=== PATIENT | female | born 1955 | race Caucasian/White ===

== ENCOUNTER → 2018-10-29 | Outpatient (CLI) | payer BC ==
[~2018-10-29] MED LIST: AZEL6DRO2 OP; BENZ200C47 PO; CYCL-331 PO; IBUP800T19 PO; IPRA4AER IH; MECL25TA3 PO; PRED1TAB PO; RAMI10CA53 PO
--- NOTE | 2018-10-29 10:09 | RAD ---
EXAM: Abdomen sonogram. HISTORY: Right upper quadrant pain. TECHNIQUE: Sonographic imaging of the abdomen was performed. COMPARISON: None. FINDINGS: The liver is upper normal in size. No focal hepatic lesion is seen. There is hepatic steatosis. There is cholelithiasis. The common bile duct is normal in caliber. The spleen is normal in size. The right kidney measures 7.3 cm [id number]. There is right renal cortical thinning. Left kidney measures 11.0 cm [id number]. The pancreas is obscured due to bowel gas. The aorta and inferior vena cava are partially obscured due to bowel gas. IMPRESSION: 1. Hepatic steatosis and upper normal liver size. 2. Cholelithiasis. 3. Right renal atrophy and renal cortical thinning. Electronically signed by: Mona Stubbs MD (10/29/2018 10:06 AM) [id number]
== END | disposition home or self-care (01) ==
LOC: US 08:55
PROVIDERS: ATTEND Physician Assistant
DX: K76.0 Fatty (change of) liver, not elsewhere classified (principal); K80.20 Calculus of gallbladder without cholecystitis without obstruction; N26.1 Atrophy of kidney (terminal)
CPT/HCPCS: 76700

== ENCOUNTER 2018-12-12 14:03 | Emergency (ER) | payer BC ==
[~2018-12-12] VITALS: Ht 162.6 cm; Wt 70.3 kg
[2018-12-12 14:24] LABS: BASO % 0 % (0-3); EOS # 0.1 x10^3/uL (0.0-0.7); EOS % 1 % (0-3); HEMATOCRIT 40.8 % (36.0-47.0); HEMOGLOBIN 13.7 g/dL (12.0-15.5); LYMPH # 3.2 x10^3/uL (1.0-4.8); LYMPH % 27 % (24-48); MEAN CORPUSCULAR HEMOGLOBIN 30 pg (25-35); MEAN CORPUSCULAR HGB CONC 34 g/dL (31-37); MEAN CORPUSCULAR VOLUME 88 fL (79-100); MONO # 0.8 x10^3/uL (0.0-1.1); MONO % 7 % (0-9); NEUT # 7.8 x10^3uL (1.8-7.7); NEUT % 65 % (31-73); PLATELET COUNT 219 x10^3/uL (140-400); RED BLOOD COUNT 4.63 x10^6/uL (3.50-5.40); RED CELL DISTRIBUTION WIDTH 13.2 % (11.5-14.5); WHITE BLOOD COUNT 11.9 x10^3/uL (4.0-11.0)
--- NOTE | 2018-12-12 14:37 | RAD ---
CHEST AP ONLY History: Chest heaviness starting this morning Comparison: 06/15/2013 Findings: Single view of the chest is submitted. There is no infiltrate, pneumothorax, or effusion. The pericardial cardiac silhouette is within normal limits in size. There is atherosclerotic calcification near aortic arch. Impression: 1. There is no evidence of acute cardiopulmonary disease. Electronically signed by: Tor Sequeira MD (12/12/2018 2:33 PM) [facility]
[2018-12-12 14:39] LABS: ALBUMIN 3.7 g/dL (3.4-5.0); CALCIUM 9.4 mg/dL (8.5-10.1); CREATININE 1.2 mg/dL (0.6-1.0); GFR 45.5; TOTAL BILIRUBIN 0.4 mg/dL (0.2-1.0); TOTAL PROTEIN 7.4 g/dL (6.4-8.2)
--- NOTE | 2018-12-12 14:40 | PHYS DOC ---
Adult General Chief Complaint Chief Complaint: RAPID HEART RATE HPI HPI 63-year-old female presents with palpitations. The patient states that she was at home eating when she began to feel like her heart was going faster and faster. She then became somewhat short of breath. The patient took an albuterol MDI and albuterol nebulizer right before she came to the emergency room. She thinks that this palpitation episode lasted about 15 minutes. It seems to be gone at this time. Patient has had intermittent palpitations in the past but has never had an official diagnosis. At this time she denies chest pain, shortness of breath. She did not have any diaphoresis. She denies fever or chills. Review of Systems Review of Systems Constitutional: Denies fever or chills [] Eyes: Denies change in visual acuity, redness, or eye pain [] HENT: Denies nasal congestion or sore throat [] Respiratory: Denies cough or shortness of breath [] Cardiovascular: No additional information not addressed in HPI [] GI: Denies abdominal pain, nausea, vomiting, bloody stools or diarrhea [] : Denies dysuria or hematuria [] Musculoskeletal: Denies back pain or joint pain [] Integument: Denies rash or skin lesions [] Neurologic: Denies headache, focal weakness or sensory changes [] Endocrine: Denies polyuria or polydipsia [] All other systems were reviewed and found to be within normal limits, except as documented in this note. Allergies Allergies Allergies Coded Allergies Type Severity Reaction Last Updated Verified meperidine Allergy Intermediate nausea 01/13/14 Yes naproxen Allergy Intermediate "Shakes" and nausea 01/13/14 Yes tramadol Allergy Intermediate "Shakes" 01/13/14 Yes Physical Exam Physical Exam Constitutional: Well developed, well nourished, no acute distress, non-toxic appearance. [] HENT: Normocephalic, atraumatic, bilateral external ears normal, oropharynx moist, no oral exudates, nose normal. [] Eyes: PERRLA, EOMI, conjunctiva normal, no discharge. [] Neck: Normal range of motion, no tenderness, supple, no stridor. [] Cardiovascular:Heart rate 115, regular rhythm, no murmur [] Lungs & Thorax: Bilateral breath sounds clear to auscultation [] Abdomen: Bowel sounds normal, soft, no tenderness, no masses, no pulsatile masses. [] Skin: Warm, dry, no erythema, no rash. [] Back: No tenderness, no CVA tenderness. [] Extremities: No tenderness, no cyanosis, no clubbing, ROM intact, no edema. [] Neurologic: Alert and oriented X 3, normal motor function, normal sensory function, no focal deficits noted. [] Psychologic: Affect normal, judgement normal, mood normal. [] Current Patient Data Lab Results Laboratory Tests Test 12/12/18 14:14 White Blood Count 11.9 x10^3/uL (4.0-11.0) H Red Blood Count 4.63 x10^6/uL (3.50-5.40) Hemoglobin 13.7 g/dL (12.0-15.5) Hematocrit 40.8 % (36.0-47.0) Mean Corpuscular Volume 88 fL (79-100) Mean Corpuscular Hemoglobin 30 pg (25-35) Mean Corpuscular Hemoglobin Concent 34 g/dL (31-37) Red Cell Distribution Width 13.2 % (11.5-14.5) Platelet Count 219 x10^3/uL (140-400) Neutrophils (%) (Auto) 65 % (31-73) Lymphocytes (%) (Auto) 27 % (24-48) Monocytes (%) (Auto) 7 % (0-9) Eosinophils (%) (Auto) 1 % (0-3) Basophils (%) (Auto) 0 % (0-3) Neutrophils # (Auto) 7.8 x10^3uL (1.8-7.7) H Lymphocytes # (Auto) 3.2 x10^3/uL (1.0-4.8) Monocytes # (Auto) 0.8 x10^3/uL (0.0-1.1) Eosinophils # (Auto) 0.1 x10^3/uL (0.0-0.7) Basophils # (Auto) 0.0 x10^3/uL (0.0-0.2) EKG EKG Sinus tachycardia, rate 116, normal axis, no ST elevations or depressions.[] Radiology/Procedures Radiology/Procedures [] Course & Med Decision Making Course & Med Decision Making Pertinent Labs and Imaging studies reviewed. (See chart for details) Asians labs are significant for potassium 2.9. We have given her 40 mEq by mouth. She also has an elevated blood sugar. The patient is a diabetic and on medication. Her EKG is unremarkable. Her troponin is negative. Her chest x-ray is unremarkable. She is feeling better at this time. Her heart rate has slowed to the normal range. I have advised that she take some extra potassium for at least a week and then discuss with her primary care physician. The patient has been using her albuterol inhaler much more frequently this week. This could be a partial cause for her hypokalemia. She is stable for discharge at this time. [] Dragon Disclaimer Dragon Disclaimer This electronic medical record was generated, in whole or in part, using a voice recognition dictation system. Departure Departure: Impression: Primary Impression: Palpitations Additional Impressions: Hypokalemia Diabetes type 2, uncontrolled Disposition: 01 HOME, SELF-CARE Condition: STABLE Referrals: TOYA SEVILLA MD (PCP) Patient Instructions: Hypokalemia-Brief, Palpitations, [id number] Problem Qualifiers Additional Impressions: Diabetes type 2, uncontrolled Glycemic state: with hyperglycemia Qualified Codes: E11.65 - Type 2 diabetes mellitus with hyperglycemia MARIA VICTORIA FERNANDEZ DO Dec 12, 2018 14:40
[2018-12-12 14:43] LABS: POTASSIUM 2.9 mmol/L (3.5-5.1)
[2018-12-12] MEDS ORDERED: POTASSIUM CHLORIDE 20 MEQ TABLET.ER. PO ONE (15:15)
[2018-12-12 15:53] LABS: BILIRUBIN,URINE NEG (NEG); CLARITY,URINE HAZY; COLOR,URINE YELLOW; GLUCOSE,URINE 500 mg/dL (NEG)
[2018-12-12 15:54] LABS: BACTERIA,URINE FEW /HPF (0-FEW); NITRITE,URINE NEG (NEG); RBC,URINE 0 /HPF (0-2); SQUAMOUS EPITHELIAL CELL,UR OCC /LPF; UROBILINOGEN,URINE 0.2 mg/dL (0.2 mg/dL)
[2018-12-12 16:07] VITALS: BP 116/64
--- NOTE | 2018-12-12 21:50 | EKG ---
[address] [address] Test Date: 2018-12-12 Test Time: 14:14:05 Pat Name: JG ANN Department: Room: Gender: F Ad Operations Specialist: : [id number] Requested By: MARIA VICTORIA FERNANDEZ Order Number: [id number] Reading MD: Fletcher Navarro MD Measurements Intervals [place] Rate: 116 P: -28 TN: 174 QRS: 5 QRSD: 78 T: 62 QT: 326 QTc: 459 Interpretive Statements SINUS TACHYCARDIA Electronically Signed On 12-14-2018 14:34:42 CDT by Fletcher Navarro MD
== END 2018-12-12 16:23 | disposition home or self-care (01) ==
LOC: ER 14:03
DX: R00.2 Palpitations (principal); E11.65 Type 2 diabetes mellitus with hyperglycemia; E87.6 Hypokalemia; Z88.8 Allergy status to other drugs, medicaments and biological substances; Z88.6 Allergy status to analgesic agent
CPT/HCPCS: 36415; 71045; 80053; 81001; 84484; 85025; 93005; 99284

== ENCOUNTER 2021-03-29 07:58 | Emergency (ER) | payer MEDICARE ==
[~2021-03-29] VITALS: Ht 162.6 cm; Wt 61.0 kg
[~2021-03-29 07:58] MED LIST changes: +MECL-75 PO; -MECL25TA3 PO
--- NOTE | 2021-03-29 08:32 | PHYS DOC ---
Past History Past Medical History: Asthma, Depression, High Cholesterol, Hypertension Past Surgical History: Cholecystectomy, Hysterectomy, Other Alcohol Use: Rarely Drug Use: None General Adult EDM: Chief Complaint: Palpitations HPI: HPI: 66-year-old female presents with palpitations. The patient started having palpitations around midnight last night. Her primary care physician told her that if she had an episode like this that she should come to the emergency room. She did not come in right away because she did not want to wake up the rest of her household. Patient does have an appointment with a county assessor tomorrow for further work-up. She had a "concerning cardioscan" recently. She denies shortness of breath or diaphoresis. She has no other complaints at this time. Review of Systems: Review of Systems: Constitutional: Denies fever or chills Eyes: Denies change in visual acuity HENT: Denies nasal congestion or sore throat Respiratory: Denies cough or shortness of breath Cardiovascular: Palpitations. Denies chest pain or edema GI: Denies abdominal pain, nausea, vomiting, bloody stools or diarrhea : Denies dysuria Musculoskeletal: Denies back pain or joint pain Integument: Denies rash Neurologic: Denies headache, focal weakness or sensory changes Endocrine: Denies polyuria or polydipsia Lymphatic: Denies swollen glands Psychiatric: Denies depression or anxiety Allergies: Allergies: Allergies Coded Allergies Type Severity Reaction Last Updated Verified meperidine Allergy Intermediate nausea 03/29/21 Yes naproxen Allergy Intermediate "Shakes" and nausea 03/29/21 Yes tramadol Allergy Intermediate "Shakes" 03/29/21 Yes niacin Allergy Unknown 03/29/21 Yes Physical Exam: PE: Constitutional: Well developed, well nourished, no acute distress, non-toxic appearance. [] HENT: Normocephalic, atraumatic, bilateral external ears normal, oropharynx moist, no oral exudates, nose normal. [] Eyes: PERRLA, EOMI, conjunctiva normal, no discharge. [] Neck: Normal range of motion, no tenderness, supple, no stridor. [] Cardiovascular: Heart rate 74,regular rhythm, no murmur [] Lungs & Thorax: Bilateral breath sounds clear to auscultation [] Abdomen: Bowel sounds normal, soft, no tenderness, no masses, no pulsatile masses. [] Skin: Warm, dry, no erythema, no rash. [] Back: No tenderness, no CVA tenderness. [] Extremities: No tenderness, no cyanosis, no clubbing, ROM intact, no edema. [] Neurologic: Alert and oriented X 3, normal motor function, normal sensory function, no focal deficits noted. [] Psychologic: Affect normal, judgement normal, mood normal. [] Current Patient Data: Vital Signs: Vital Signs Date Time Temp Pulse Resp B/P (MAP) Pulse Ox O2 Delivery O2 Flow Rate FiO2 03/29/21 08:05 97.6 72 16 156/60 97 EKG: EKG: Sinus rhythm, rate 74, leftward axis, no ST elevations or depressions. [] Radiology/Procedures: Radiology/Procedures: [] Impressions: Exam Date: 03/29/2021 8:52 AM XR CHEST 1V Indication: Reason: palpitations / Spl. Instructions: / History: . Comparison: December 12, 2018 FINDINGS/ IMPRESSION: The cardiac silhouette and pulmonary vasculature are within normal limits. There is no focal consolidation, pleural effusion or pneumothorax. The visualized osseous structures are intact. Electronically signed by: Juan Ruiz MD (03/29/2021 9:04 AM) [id number] DICTATED AND SIGNED BY: JUAN RUIZ MD DATE: 03/29/21 0903 CC: MARIA VICTORIA FERNANDEZ DO; TOYA SEVILLA MD ~MTH0 0 Heart Score: C/O Chest Pain: No HEART Score for Chest Pain: HEART Score for Chest Pain Response (Comments) Value History Slighlty/Non-Suspicious 0 ECG Normal 0 Age > 65 2 Risk Factors 1 or 2 Risk Factors 1 Troponin < Normal Limit 0 Total 3 Risk Factors: Risk Factors: DM, Current or recent (<one month) smoker, HTN, HLP, family history of CAD, obesity. Risk Scores: Score 0 - 3: 2.5% MACE over next 6 weeks - Discharge Home Score 4 - 6: 20.3% MACE over next 6 weeks - Admit for Clinical Observation Score 7 - 10: 72.7% MACE over next 6 weeks - Early Invasive Strategies Course & Med Decision Making: Course & Med Decision Making Pertinent Labs and Imaging studies reviewed. (See chart for details) The patient's labs are unremarkable. Her EKG is unremarkable. Her troponin is negative. Chest x-ray is negative for acute findings. Patient's heart score is a 3. She is not having chest pain. We have not seen any irregular rhythms during her stay in the ER. I believe she can be discharged and follow-up with cardiology as previously planned tomorrow. She is stable for discharge at this time. [] Dragon Disclaimer: Dragon Disclaimer: This electronic medical record was generated, in whole or in part, using a voice recognition dictation system. Departure Departure: Impression: Primary Impression: Palpitations Disposition: HOME / SELF CARE / HOMELESS Condition: STABLE Referrals: TOYA SEVILLA MD (PCP) Patient Instructions: Palpitations, [id number] MARIA VICTORIA FERNANDEZ DO Mar 29, 2021 08:32
[2021-03-29 09:00] LABS: BASO % 0 % (0-3); EOS # 0.2 x10^3/uL (0.0-0.7); EOS % 2 % (0-3); HEMATOCRIT 35.9 % (36.0-47.0); HEMOGLOBIN 12.4 g/dL (12.0-15.5); LYMPH # 2.3 x10^3/uL (1.0-4.8); LYMPH % 28 % (24-48); MEAN CORPUSCULAR HEMOGLOBIN 30 pg (25-35); MEAN CORPUSCULAR HGB CONC 35 g/dL (31-37); MEAN CORPUSCULAR VOLUME 87 fL (79-100); MONO # 0.6 x10^3/uL (0.0-1.1); MONO % 8 % (0-9); NEUT # 5.1 x10^3uL (1.8-7.7); NEUT % 63 % (31-73); PLATELET COUNT 196 x10^3/uL (140-400); RED BLOOD COUNT 4.14 x10^6/uL (3.50-5.40); RED CELL DISTRIBUTION WIDTH 13.9 % (11.5-14.5); WHITE BLOOD COUNT 8.2 x10^3/uL (4.0-11.0)
[2021-03-29 09:03] LABS: CALCIUM 9.4 mg/dL (8.5-10.1); GFR 55.6
--- NOTE | 2021-03-29 09:06 | RAD ---
Exam Date: 03/29/2021 8:52 AM XR CHEST 1V Indication: Reason: palpitations / Spl. Instructions: / History: . Comparison: December 12, 2018 FINDINGS/ IMPRESSION: The cardiac silhouette and pulmonary vasculature are within normal limits. There is no focal consolidation, pleural effusion or pneumothorax. The visualized osseous structures are intact. Electronically signed by: Taiwo Ruiz MD (03/29/2021 9:04 AM) [id number]
[2021-03-29 09:08] LABS: ALBUMIN 3.8 g/dL (3.4-5.0); ALBUMIN/GLOBULIN RATIO 1.4 (1.0-1.7); TOTAL BILIRUBIN 0.7 mg/dL (0.2-1.0); TOTAL PROTEIN 6.6 g/dL (6.4-8.2)
[2021-03-29 09:45] VITALS: BP 128/70
--- NOTE | 2021-03-30 00:40 | EKG ---
[address] [address] Test Date: 2021-03-29 Test Time: 08:07:16 Pat Name: JG ANN Department: Room: Gender: F Pet Training Instructor: DIANE : 1955 Requested By: MARIA VICTORIA FERNANDEZ Order Number: [id number] Reading MD: Measurements Intervals [place] Rate: 74 P: 35 NM: 172 QRS: -11 QRSD: 76 T: 48 QT: 388 QTc: 431 Interpretive Statements SINUS RHYTHM LEFTWARD AXIS OTHERWISE NORMAL ECG RI6.02 No previous ECG available for comparison
== END 2021-03-29 09:55 | disposition home or self-care (01) ==
LOC: ER 07:58
DX: R00.2 Palpitations (principal); J45.909 Unspecified asthma, uncomplicated; F32.9 Major depressive disorder, single episode, unspecified; E78.00 Pure hypercholesterolemia, unspecified; I10 Essential (primary) hypertension; Z88.8 Allergy status to other drugs, medicaments and biological substances; Z88.1 Allergy status to other antibiotic agents
CPT/HCPCS: 36415; 71045; 80053; 84484; 85025; 93005; 99285